=== PATIENT | female | born 1975 | race Caucasian/White ===

== ENCOUNTER 2019-01-21 06:07 | Emergency (ER) | payer MEDICAID ==
[2019-01-21] MEDS: ONDANSETRON (ODT) 4 MG TAB ODT (07:11)
[2019-01-21] MEDS: HYDROCODONE/APAP (5/325) TAB PO (07:12)
[2019-01-21 07:15] LABS: URINE BLOOD (Dip) POC 1+ (NEGATIVE); URINE GLUCOSE (Dip) POC Negative (NEGATIVE); URINE KETONES (Dip) POC Negative (NEGATIVE); URINE LEUKOCYTE EST (Dip) POC Negative (NEGATIVE); URINE NITRITE (Dip) POC Negative (NEGATIVE); URINE TOTAL PROTEIN POC 1+ (NEGATIVE)
[2019-01-21] MEDS: KETOROLAC 60 MG INJ IM (07:23)
== END 2019-01-21 07:58 | disposition home or self-care (01) ==
LOC: FTE 06:07
DX: G43.909 Migraine, unspecified, not intractable, without status migrainosus (principal)
CPT/HCPCS: 81003; 81025; 96372; 99284-25